=== PATIENT | female | born 1980 | race Caucasian/White ===

== ENCOUNTER 2016-05-10 09:34 | Emergency (ER) | payer BC ==
[2016-05-10 10:12] VITALS: BP 135/74
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
== END 2016-05-10 10:28 | disposition home or self-care (01) ==
LOC: UCEAST 09:34
DX: M54.5 Low back pain (principal); M79.605 Pain in left leg; Z88.0 Allergy status to penicillin
CPT/HCPCS: 99212; G0463

== ENCOUNTER 2017-03-05 11:39 | Emergency (ER) | payer BC ==
[2017-03-05 11:52] VITALS: BP 111/70
--- NOTE | 2017-03-05 12:56 | UC ---
Respiratory Complaint HPI - HPI Summary HPI Summary: 36 yo female with from [place] /pressure and pain x 1 week some post nasal drip now with sore throat no f/c low energy - History of Current Complaint Chief Complaint: UCGeneralIllness Stated Complaint: SORE THROAT Time Seen by Provider: 03/05/17 12:06 Hx Obtained From: Patient Hx Last Menstrual Period: 02/12/17 Onset/Duration: Gradual Onset Timing: Constant Severity Initially: Moderate Severity Currently: Moderate Pain Intensity: 4 Pain Scale Used: 0-10 Numeric Character: Cough: Nonproductive Associated Signs And Symptoms: Positive: Sinus Discomfort - Allergies/Home Medications Allergies/Adverse Reactions: Allergies Allergy/AdvReac Type Severity Reaction Status Date / Time Shellfish Allergy Allergy Severe Hives Verified 03/05/17 11:52 Penicillins AdvReac Intermediate See Comment Verified 03/05/17 11:52 bee stings Allergy Severe Anaphylatic Uncoded 03/05/17 11:52 Shock chalk Allergy Itching Uncoded 03/05/17 11:52 Home Medications: Home Medications Ascorbic Acid TAB* [Vitamin C TAB*] 500 mg PO DAILY 03/05/17 [History Confirmed 03/05/17] PMH/Surg Hx/FS Hx/Imm Hx Previously Healthy: Yes Other History Of: Negative For: HIV, Hepatitis B, Hepatitis C, Anticoagulant Therapy - Surgical History Surgical History: Yes Surgery Procedure, Year, and Place: appy 1990,3 c-sections. TUBAL LIGATION W/ LAST C SECTION - Family History Known Family History: Positive: Hypertension - Social History Alcohol Use: Occasionally Substance Use Type: None Smoking Status (MU): Never Smoked Tobacco Household Exposure Type: Cigarettes - Immunization History Most Recent Influenza Vaccination: 01/2017 Review of Systems Constitutional: Fatigue Skin: Negative Eyes: Negative ENT: Sore Throat, Sinus Congestion, Sinus Pain/Tenderness Respiratory: Negative Cardiovascular: Negative Gastrointestinal: Negative Genitourinary: Negative Motor: Negative Neurovascular: Negative Musculoskeletal: Negative Neurological: Headache Psychological: Negative Is Patient Immunocompromised?: No All Other Systems Reviewed And Are Negative: Yes Physical Exam Triage Information Reviewed: Yes Appearance: Well-Appearing, No Pain Distress, Well-Nourished Vital Signs: Initial Vital Signs Temp 98.1 F 03/05/17 11:48 Pulse 73 03/05/17 11:48 Resp 16 03/05/17 11:48 BP 111/70 03/05/17 11:48 Pulse Ox 100 03/05/17 11:48 Vital Signs Reviewed: Yes Eyes: Positive: Conjunctiva Clear ENT: Positive: Hearing grossly normal, Pharyngeal erythema, Nasal congestion, TMs normal, Sinus tenderness, Uvula midline Neck: Positive: Supple, Nontender, No Lymphadenopathy Respiratory: Positive: Lungs clear, Normal breath sounds, No respiratory distress, No accessory muscle use Cardiovascular: Positive: RRR, No Murmur Musculoskeletal: Positive: ROM Intact, No Edema Neurological: Positive: Alert Psychological Exam: Normal Skin Exam: Normal Diagnostic Evaluation - Laboratory O2 Sat by Pulse Oximetry: 100 Diagnostic Studies Comment: strep (-) Respiratory Course/Dx - Differential Dx/Diagnosis Provider Diagnoses: sinusitis. pharyngitis Discharge - Discharge Plan Condition: Stable Disposition: HOME Prescriptions: Amoxicillin PO (*) [Amoxicillin 875 MG (*)] 875 mg PO BID #20 tab Patient Education Materials: Sinusitis (ED) Referrals: [facility] [Outside] - If Needed Additional Instructions: warm facial compresses strep (-) saline nasal spray twice daily
== END 2017-03-05 12:57 | disposition home or self-care (01) ==
LOC: UCEAST 11:39
DX: J32.9 Chronic sinusitis, unspecified (principal); J02.9 Acute pharyngitis, unspecified
CPT/HCPCS: 87651; 99211; G0463

== ENCOUNTER 2017-05-29 17:52 | Emergency (ER) | payer BC ==
--- NOTE | 2017-05-29 18:12 | UC ---
Throat Pain/Nasal Earl HPI - HPI Summary HPI Summary: has had sinusitis symptoms for 2.5 week, now has worsening cough and sore throat is concerned because her nephew that lives with them has strep throat - History of Current Complaint Chief Complaint: UCRespiratory Stated Complaint: SORE THROAT, AND COUGH Time Seen by Provider: 05/29/17 18:10 Hx Obtained From: Patient Hx Last Menstrual Period: 02/12/17 ?: No Onset/Duration: Sudden Onset, Lasting Days Severity: Moderate Cough: Nonproductive Associated Signs & Symptoms: Positive: Hoarseness, Sinus Discomfort, Nasal Discharge - Allergies/Home Medications Allergies/Adverse Reactions: Allergies Allergy/AdvReac Type Severity Reaction Status Date / Time MS Shellfish Allergy Allergy Severe Hives Verified 05/29/17 18:18 MS Penicillins [Penicillins] AdvReac Intermediate See Comment Verified 05/29/17 18:18 bee stings Allergy Severe Anaphylatic Uncoded 05/29/17 18:18 Shock chalk Allergy Itching Uncoded 05/29/17 18:18 PMH/Surg Hx/FS Hx/Imm Hx Previously Healthy: Yes Other History Of: Negative For: HIV, Hepatitis B, Hepatitis C, Anticoagulant Therapy - Surgical History Surgical History: Yes Surgery Procedure, Year, and Place: appy 1990,3 c-sections. TUBAL LIGATION W/ LAST C SECTION - Family History Known Family History: Positive: Hypertension - Social History Occupation: Employed Full-time Lives: With Family Alcohol Use: Occasionally Substance Use Type: None Smoking Status (MU): Never Smoked Tobacco Household Exposure Type: Cigarettes - Immunization History Most Recent Influenza Vaccination: 01/2017 Review of Systems Constitutional: Chills, Fatigue Skin: Negative Eyes: Negative ENT: Sore Throat Respiratory: Cough Cardiovascular: Negative Gastrointestinal: Negative Genitourinary: Negative Motor: Negative Neurovascular: Negative Musculoskeletal: Negative Neurological: Negative Psychological: Negative Is Patient Immunocompromised?: No All Other Systems Reviewed And Are Negative: Yes Physical Exam Triage Information Reviewed: Yes Appearance: Well-Appearing, No Pain Distress, Well-Nourished Vital Signs Reviewed: Yes Eye Exam: Normal Eyes: Positive: Conjunctiva Clear ENT Exam: Normal ENT: Positive: Normal ENT inspection, Hearing grossly normal, Pharynx normal, Uvula midline. Negative: Nasal congestion, Tonsillar swelling, Tonsillar exudate, Trismus, Muffled voice, Hoarse voice, Sinus tenderness Dental Exam: Normal Neck exam: Normal Neck: Positive: Supple, Nontender Respiratory Exam: Normal Respiratory: Positive: Chest non-tender, Lungs clear, Normal breath sounds, No respiratory distress, No accessory muscle use Cardiovascular Exam: Normal Cardiovascular: Positive: RRR, No Murmur, Pulses Normal, Brisk Capillary Refill Musculoskeletal Exam: Normal Musculoskeletal: Positive: Strength Intact, ROM Intact, No Edema Neurological Exam: Normal Neurological: Positive: Alert, Muscle Tone Normal Psychological Exam: Normal Skin Exam: Normal Diagnostics - Laboratory Diagnostic Studies Completed/Ordered: RST (-) Throat Pain/Nasal Course/Dx - Course Assessment/Plan: will rx amoxicillin should sx worsen ---increase fluids, tylenol, ibuprofen follow with pcp - Differential Dx/Diagnosis Provider Diagnoses: Viral Pharyngitis Discharge - Discharge Plan Condition: Stable Disposition: HOME Prescriptions: Amoxicillin PO (*) [Amoxicillin 500 MG CAP*] 500 mg PO Q12H #20 cap Fluconazole [Diflucan 150 MG (NF)] 150 mg PO ONCE #2 tab Patient Education Materials: Pharyngitis (ED) Referrals: Romina Weinstein [employer]UTIONS ARCHITECT [Primary Care Provider] - If Needed
[2017-05-29 18:26] VITALS: BP 105/63
== END 2017-05-29 20:00 | disposition home or self-care (01) ==
LOC: UCEAST 17:52
DX: J02.8 Acute pharyngitis due to other specified organisms (principal); R05 Cough; Z91.030 Bee allergy status; Z88.0 Allergy status to penicillin; Z91.013 Allergy to seafood
CPT/HCPCS: 87651; 99212; G0463

== ENCOUNTER 2017-08-18 09:49 | Emergency (ER) | payer BC ==
--- NOTE | 2017-08-18 10:15 | UC ---
Throat Pain/Nasal Earl HPI - HPI Summary HPI Summary: Pt presents with sore throat for the last 3 days. She tells me that 2 days ago she had a fever of 100F, fatigue, and body aches - she rested and took ibuprofen with relief of her symptoms. Her sore throat has persisted. 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 Currently denies fever, chills, cough, SOB, chest pain, abdominal pain, n/v/d/c. - History of Current Complaint Stated Complaint: SORE THROAT Time Seen by Provider: 08/18/17 10:15 Hx Obtained From: Patient Hx Last Menstrual Period: 02/12/17 Onset/Duration: Gradual Onset Severity: Mild Pain Intensity: 3 Pain Scale Used: 0-10 Numeric - Allergies/Home Medications Allergies/Adverse Reactions: Allergies Allergy/AdvReac Type Severity Reaction Status Date / Time Penicillins Allergy Intermediate yeast Verified 08/18/17 10:31 infections bee stings Allergy Severe Anaphylatic Uncoded 08/18/17 10:31 Shock shelllfish Allergy Severe Hives Uncoded 08/18/17 10:31 chalk Allergy Itching Uncoded 08/18/17 10:31 PMH/Surg Hx/FS Hx/Imm Hx - Additional Past Medical History Additional PMH: None Previously Healthy: Yes Other History Of: Negative For: HIV, Hepatitis B, Hepatitis C, Anticoagulant Therapy - Surgical History Surgical History: Yes Surgery Procedure, Year, and Place: appy 1990,3 c-sections. TUBAL LIGATION W/ LAST C SECTION - Family History Known Family History: Positive: Hypertension - Social History Occupation: Employed Full-time Lives: With Family Alcohol Use: Occasionally Substance Use Type: None Smoking Status (MU): Never Smoked Tobacco Household Exposure Type: Cigarettes - Immunization History Most Recent Influenza Vaccination: 01/2017 Review of Systems Constitutional: Negative Skin: Negative Eyes: Negative ENT: Sore Throat Respiratory: Negative Cardiovascular: Negative Gastrointestinal: Negative Neurovascular: Negative Neurological: Negative Psychological: Negative All Other Systems Reviewed And Are Negative: Yes Physical Exam - Summary Physical Exam Summary: GENERAL: NAD. WDWN. No pain distress. SKIN: No rashes, sores, lesions, or open wounds. HEENT: Head: AT/NC Eyes: Conjunctiva clear without inflammation or discharge. Ears: Hearing grossly normal. TMs intact, no bulging, erythema, or edema. Nose: Nasal mucosa pink and moist. NTTP maxillary and frontal sinus. Throat: Posterior oropharynx mild erythema. No tonsillar enlargement. No exudates. Uvula midline. No hoarse voice or muffled voice. NECK: Supple. Nontender. No lymphadenopathy. CHEST: CTAB. No r/r/w. No accessory muscle use. Breathing comfortably and in no distress. CV: RRR. Without m/r/g. Pulses intact. Brisk cap refill. NEURO: Alert. CN II-XII grossly intact. PSYCH: Age appropriate behavior. Triage Information Reviewed: Yes Throat Pain/Nasal Course/Dx - Course Course Of Treatment: POC strep negative. Suspecct viral illness. Advised to continue with supportive care. Pt did not want flu swab today. - Differential Dx/Diagnosis Provider Diagnoses: Viral illness Discharge - Sign-Out/Discharge Documenting (check all that apply): Discharge/Admit/Transfer - Discharge Plan Condition: Stable Disposition: HOME Patient Education Materials: Viral Syndrome (ED) Referrals: Romina Weinstein NP [Primary Care Provider] - Additional Instructions: If you develop a fever, shortness of breath, chest pain, new or worsening symptoms - please call your PCP or go to the ED. - Billing Disposition and Condition Condition: STABLE Disposition: HOME
[2017-08-18 10:29] VITALS: BP 113/73
== END 2017-08-18 10:50 | disposition home or self-care (01) ==
LOC: UCEAST 09:49
DX: B34.9 Viral infection, unspecified (principal); Z88.0 Allergy status to penicillin
CPT/HCPCS: 87651; 99211; G0463

== ENCOUNTER 2017-11-24 13:19 | Emergency (ER) | payer BC ==
[2017-11-24 13:41] VITALS: BP 116/65
--- NOTE | 2017-11-24 13:58 | UC ---
Complaint Female HPI - HPI Summary HPI Summary: 37-year-old female presents with onset of dysuria, frequency, and urgency this morning. Associated with some mild suprapubic discomfort and cloudy urine. States symptoms have progressively worsened throughout the day. She denies fevers or chills, back or flank pain, nausea or vomiting, hematuria, or vaginal discharge. Last menstrual period was a week and a half to 2 weeks ago. Surgical history significant for tubal ligation. - History Of Current Complaint Chief Complaint: UCGU Stated Complaint: URINARY COMPLAINT Time Seen by Provider: 11/24/17 13:39 Hx Obtained From: Patient Hx Last Menstrual Period: 12/11/17 ?: No - history of tubal ligation Onset/Duration: Gradual Onset Severity Initially: Mild Severity Currently: Mild Pain Intensity: 6 Character: Burning Aggravating Factor(s): Urination Alleviating Factor(s): Nothing Associated Signs And Symptoms: Positive: Negative - Allergies/Home Medications Allergies/Adverse Reactions: Allergies Allergy/AdvReac Type Severity Reaction Status Date / Time Penicillins Allergy Intermediate yeast Verified 11/24/17 13:41 infections bee stings Allergy Severe Anaphylatic Uncoded 11/24/17 13:41 Shock shelllfish Allergy Severe Hives Uncoded 11/24/17 13:41 chalk Allergy Itching Uncoded 11/24/17 13:41 PMH/Surg Hx/FS Hx/Imm Hx - Additional Past Medical History Additional PMH: Noncontributory Previously Healthy: Yes Other History Of: Negative For: HIV, Hepatitis B, Hepatitis C, Anticoagulant Therapy - Surgical History Surgical History: Yes Surgery Procedure, Year, and Place: appy 1990,3 c-sections. TUBAL LIGATION W/ LAST C SECTION - Family History Known Family History: Positive: Hypertension - Social History Occupation: Employed Full-time Lives: With Family Alcohol Use: Occasionally Substance Use Type: None Smoking Status (MU): Never Smoked Tobacco Household Exposure Type: Cigarettes - Immunization History Most Recent Influenza Vaccination: 01/2017 Review of Systems Constitutional: Negative Gastrointestinal: Abdominal Pain - Suprapubic Genitourinary: Dysuria, Frequency, Urgency, Other - See history of present illness Is Patient Immunocompromised?: No All Other Systems Reviewed And Are Negative: Yes Physical Exam Triage Information Reviewed: Yes Appearance: Well-Appearing, No Pain Distress, Well-Nourished Vital Signs: Initial Vital Signs Temp 97 F 11/24/17 13:38 Pulse 81 11/24/17 13:38 Resp 16 11/24/17 13:38 BP 116/65 11/24/17 13:38 Pulse Ox 99 11/24/17 13:38 Vital Signs Reviewed: Yes Respiratory: Positive: No respiratory distress Abdomen Description: Positive: No Organomegaly, Soft, Other: - Mild suprapubic tenderness. Negative: CVA Tenderness (R), CVA Tenderness (L) Bowel Sounds: Positive: Present Neurological: Positive: Alert Skin Exam: Normal Diagnostics - Laboratory Diagnostic Studies Completed/Ordered: Point of care urinalysis was positive for leukocyte esterase, blood, and protein. Complaint Female Dx - Course Course Of Treatment: 37-year-old female presents with onset of UTI symptoms this morning. [id number] urinalysis was positive for leukocyte esterase, blood, and protein. Will send a urine culture. Nitrofurantoin 100 mg twice a day for 5 days. Pyridium 1 tab 3 times a day for 2 days. Follow-up with primary care provider if no improvement in symptoms after treatment. - Differential Dx/Diagnosis Provider Diagnoses: Acute urinary cystitis Discharge - Sign-Out/Discharge Documenting (check all that apply): Patient Departure - Discharge Plan Condition: Stable Disposition: HOME Prescriptions: Nitrofurantoin Macrocrystal [Nitrofurantoin] 100 mg PO BID #10 capsule Phenazopyridine TAB* [Pyridium 100 mg TAB*] 100 mg PO TID #6 tab Patient Education Materials: Urinary Tract Infection in Women (DC) Referrals: Romina Weinstein [employer] STITCHER [Primary Care Provider] - If Needed Additional Instructions: The urine test performed in the clinic today is consistent with a urinary tract infection. We will send a urine culture to see what bacteria grows out and ensure that it is sensitive to the antibiotic given to you. Take the antibiotic as directed. Take Pyridium 1 tab 3 times a day for the next 2 days to help with the discomfort. Be aware that this will turn her urine orange color. Drink plenty of fluids. To help prevent urinary tract infections in the future be sure to wipe from front to back and urinate after intercourse. Follow-up with your primary care provider if no improvement in symptoms after completing your treatment. - Billing Disposition and Condition Condition: STABLE Disposition: Home
== END 2017-11-24 14:17 | disposition home or self-care (01) ==
LOC: UCEAST 13:19
DX: N30.01 Acute cystitis with hematuria (principal); Z91.030 Bee allergy status; Z88.0 Allergy status to penicillin; Z91.013 Allergy to seafood; Z82.49 Family history of ischemic heart disease and other diseases of the circulatory system
CPT/HCPCS: 81003; 87077; 87086; 99212; G0463

== ENCOUNTER 2017-12-04 16:16 | Emergency (ER) | payer BC ==
[2017-12-04 16:57] VITALS: BP 119/76
--- NOTE | 2017-12-04 17:22 | UC ---
Complaint Female HPI - HPI Summary HPI Summary: treated for UTI 3 weeks ago (macrobid) started to feel better but over past day symptoms have returned - History Of Current Complaint Chief Complaint: UCGU Stated Complaint: POSS UTI Time Seen by Provider: 12/04/17 17:00 Hx Obtained From: Patient Hx Last Menstrual Period: [id number] ?: No Onset/Duration: Gradual Onset Timing: Constant Severity Initially: Mild Severity Currently: Moderate Pain Intensity: 6 Character: Burning Aggravating Factor(s): Urination Alleviating Factor(s): Nothing Associated Signs And Symptoms: Positive: Negative. Negative: Fever, Back Pain, Vaginal Bleeding/Discharge, Vaginal Discharge Related Hx: Similar Episode/Dx as: - UTI - Allergies/Home Medications Allergies/Adverse Reactions: Allergies Allergy/AdvReac Type Severity Reaction Status Date / Time Penicillins Allergy Intermediate yeast Verified 12/04/17 16:57 infections bee stings Allergy Severe Anaphylatic Uncoded 12/04/17 16:57 Shock shelllfish Allergy Severe Hives Uncoded 12/04/17 16:57 chalk Allergy Itching Uncoded 12/04/17 16:57 PMH/Surg Hx/FS Hx/Imm Hx Previously Healthy: Yes Other History Of: Negative For: HIV, Hepatitis B, Hepatitis C, Anticoagulant Therapy - Surgical History Surgical History: Yes Surgery Procedure, Year, and Place: appy 1990,3 c-sections. TUBAL LIGATION W/ LAST C SECTION - Family History Known Family History: Positive: Hypertension - Social History Occupation: Employed Full-time - teacher Lives: With Family Alcohol Use: Occasionally Substance Use Type: None Smoking Status (MU): Never Smoked Tobacco Household Exposure Type: Cigarettes - Immunization History Most Recent Influenza Vaccination: 01/2017 Review of Systems Constitutional: Negative Respiratory: Negative Cardiovascular: Negative Genitourinary: Dysuria, Frequency, Urgency Psychological: Negative Is Patient Immunocompromised?: No All Other Systems Reviewed And Are Negative: Yes Physical Exam Triage Information Reviewed: Yes Appearance: Well-Appearing, No Pain Distress, Well-Nourished Vital Signs: Initial Vital Signs Temp 98.6 F 12/04/17 16:52 Pulse 69 12/04/17 16:52 Resp 16 12/04/17 16:52 BP 119/76 12/04/17 16:52 Pulse Ox 99 12/04/17 16:52 Vital Signs Reviewed: Yes Respiratory Exam: Normal Cardiovascular Exam: Normal Abdominal Exam: Normal Abdomen Description: Positive: Nontender, No Organomegaly, Soft. Negative: CVA Tenderness (R), CVA Tenderness (L) Neurological Exam: Normal Psychological Exam: Normal Skin Exam: Normal Complaint Female Dx - Differential Dx/Diagnosis Differential Diagnosis/HQI/PQRI: Ureteral Stone, Urinary Tract Infection Provider Diagnoses: UTI Discharge - Sign-Out/Discharge Documenting (check all that apply): Patient Departure - Discharge Plan Condition: Stable Disposition: HOME Prescriptions: Ciprofloxacin TAB* [Cipro 500 MG TAB*] 500 mg PO BID #14 tab Patient Education Materials: Urinary Tract Infection in Women (ED) Referrals: Romina Weinstein [employer]AREER LAW CLERK [Primary Care Provider] - 3 Days (if no better) Additional Instructions: Drink plenty of fluids start antibiotic and take as prescribed - Billing Disposition and Condition Condition: STABLE Disposition: Home
--- NOTE | 2017-12-06 19:04 | PN ---
Progress Note - Progress Note Date of Service: 12/06/17 Note: Patient's urine grew Staphylococcus greater than 100,000. Patient placed on Cipro. No further action required.
== END 2017-12-04 17:32 | disposition home or self-care (01) ==
LOC: UCEAST 16:16
DX: N39.0 Urinary tract infection, site not specified (principal); Z91.030 Bee allergy status; Z88.0 Allergy status to penicillin; Z91.013 Allergy to seafood
CPT/HCPCS: 81003; 87077; 87086; 99212; G0463

== ENCOUNTER 2017-12-10 19:43 | Emergency (ER) | payer BC ==
[2017-12-10 20:57] VITALS: BP 122/84
--- NOTE | 2017-12-10 21:51 | UC ---
Knee Pain HPI - HPI Summary HPI Summary: injured left knee yesterday while playing volleyball - History of Current Complaint Chief Complaint: UCLowerExtremity Stated Complaint: L KNEE INJURY Time Seen by Provider: 12/10/17 21:44 Hx Obtained From: Patient Hx Last Menstrual Period: 1 MONTH AGO ?: No Onset/Duration: Sudden Onset, Lasting Days - 1 Pain Intensity: 5 Pain Scale Used: 0-10 Numeric Character: Aching, Throbbing, Stiffness Aggravating Factor(s): Movement, Weight Bearing Alleviating Factor(s): Rest, Position, Cold, OTC Meds Associated Signs And Symptoms: Positive: Swelling Able to Bear Weight: Yes - Allergies/Home Medications Allergies/Adverse Reactions: Allergies Allergy/AdvReac Type Severity Reaction Status Date / Time Penicillins Allergy Intermediate yeast Verified 12/10/17 20:57 infections bee stings Allergy Severe Anaphylatic Uncoded 12/04/17 16:57 Shock shelllfish Allergy Severe Hives Uncoded 12/04/17 16:57 chalk Allergy Itching Uncoded 12/04/17 16:57 PMH/Surg Hx/FS Hx/Imm Hx Previously Healthy: Yes Other History Of: Negative For: HIV, Hepatitis B, Hepatitis C, Anticoagulant Therapy - Surgical History Surgical History: Yes Surgery Procedure, Year, and Place: appy 1990,3 c-sections. TUBAL LIGATION W/ LAST C SECTION - Family History Known Family History: Positive: Hypertension - Social History Occupation: Employed Full-time Lives: With Family Alcohol Use: Occasionally Substance Use Type: None Smoking Status (MU): Never Smoked Tobacco Household Exposure Type: Cigarettes - Immunization History Most Recent Influenza Vaccination: 01/2017 Most Recent Tetanus Shot: UCLO Review of Systems Constitutional: Negative Skin: Negative Eyes: Negative ENT: Negative Respiratory: Negative Cardiovascular: Negative Gastrointestinal: Negative Genitourinary: Negative Motor: Negative Neurovascular: Negative Musculoskeletal: Arthralgia - left knee pain, Edema - left knee Neurological: Negative Psychological: Negative Is Patient Immunocompromised?: No All Other Systems Reviewed And Are Negative: Yes Physical Exam Triage Information Reviewed: Yes Appearance: Well-Appearing, No Pain Distress, Well-Nourished Vital Signs: Initial Vital Signs Temp 97.9 F 12/10/17 20:54 Pulse 73 12/10/17 20:54 Resp 16 12/10/17 20:54 BP 122/84 12/10/17 20:54 Pulse Ox 100 12/10/17 20:54 Vital Signs Reviewed: Yes Eye Exam: Normal Eyes: Positive: Conjunctiva Clear ENT Exam: Normal ENT: Positive: Normal ENT inspection, Hearing grossly normal. Negative: Trismus , Muffled voice, Hoarse voice Dental Exam: Normal Neck exam: Normal Neck: Positive: Supple, Nontender, No Lymphadenopathy Respiratory Exam: Normal Respiratory: Positive: Chest non-tender, No respiratory distress, No accessory muscle use Cardiovascular Exam: Normal Cardiovascular: Positive: RRR, Pulses Normal, Brisk Capillary Refill Abdominal Exam: Normal Musculoskeletal Exam: Other Musculoskeletal: Positive: Strength Limited @ - left knee, ROM Limited @ - left knee, Edema @ - left knee Neurological Exam: Normal Psychological Exam: Normal Skin Exam: Normal Knee Pain Course/Dx - Course Course Of Treatment: Stop Cipro! knee immoblizer, crutches, follow with ortho in 3 days, RICE---will reculture urine - Differential Dx/Diagnosis Provider Diagnoses: left knee injury Discharge - Sign-Out/Discharge Documenting (check all that apply): Patient Departure All imaging exams completed and their final reports reviewed: No - Discharge Plan Condition: Stable Disposition: HOME Patient Education Materials: Crutch Instructions (ED), Knee Pain (ED), R.I.C.E. Treatment (ED) Referrals: Benjamin Bundy MD [Medical Doctor] - 3 Days Additional Instructions: Stop Cipro! - Billing Disposition and Condition Condition: STABLE Disposition: Home
--- NOTE | 2017-12-11 08:05 | UC ---
- Progress Note Progress Note: IMPRESSION: #. Equivocal small joint effusion. Otherwise unremarkable. No change in plan of care Discharge - Sign-Out/Discharge Documenting (check all that apply): Post-Discharge Follow Up All imaging exams completed and their final reports reviewed: Yes - Discharge Plan Condition: Stable Disposition: HOME Patient Education Materials: Crutch Instructions (ED), Knee Pain (ED), R.I.C.E. Treatment (ED) Referrals: Benjamin Bundy MD [Medical Doctor] - 3 Days Additional Instructions: Stop Cipro! - Billing Disposition and Condition Condition: STABLE Disposition: Home
--- NOTE | 2017-12-11 09:42 | RAD ---
Indication: Continued lateral LEFT knee pain and swelling following pop sensation at lateral aspect 3 days ago while running. Comparison: June 18, 2009 Technique: LEFT knee: AP, tunnel, lateral, sunrise views. Report: Negative for fracture or malalignment. Equivocal small joint effusion at the suprapatellar joint recess. Preserved joint spaces. Unremarkable soft tissue contours. IMPRESSION: #. Equivocal small joint effusion. Otherwise unremarkable. R0
== END 2017-12-10 22:37 | disposition home or self-care (01) ==
LOC: UCEAST 19:43
DX: S89.82XA Other specified injuries of left lower leg, initial encounter (principal); X50.1XXA Overexertion from prolonged static or awkward postures, initial encounter; Y92.9 Unspecified place or not applicable
CPT/HCPCS: 81003; 87086; 99213; G0463

== ENCOUNTER 2019-06-07 11:48 | Emergency (ER) | payer BC ==
[2019-06-07 12:47] VITALS: BP 122/80
--- NOTE | 2019-06-07 13:25 | UC ---
Hand/Wrist HPI - HPI Summary HPI Summary: Pt RHD presents with swelling and discomfort right 5th finger x 2 days. Pt states injured while sledding. no defomity. no analgesia taken. states discomfort with movement - feels stiff states tip feels "tingling" no open wounds medications as entered in EMR by boiler erector reviewed this visit denies - History Of Current Complaint Chief Complaint: UCUpperExtremity Stated Complaint: R HAND INJURY Time Seen by Provider: 06/07/19 13:11 Hx Last Menstrual Period: one week ago ?: No Onset/Duration: Sudden Onset Severity Initially: Mild Pain Intensity: 6 - Allergies/Home Medications Allergies/Adverse Reactions: Allergies Allergy/AdvReac Type Severity Reaction Status Date / Time Penicillins Allergy Intermediate yeast Verified 12/15/17 10:35 infections shellfish derived Allergy Intermediate Hives Verified 06/07/19 12:47 bee stings Allergy Severe Anaphylatic Uncoded 12/15/17 10:35 Shock chalk Allergy Itching Uncoded 12/15/17 10:35 Home Medications: Home Medications Iron Combinations [Iron] 1 tab PO DAILY 04/24/13 [History Confirmed 06/07/19] Ascorbic Acid TAB* [Vitamin C TAB*] 500 mg PO DAILY 03/05/17 [History Confirmed 06/07/19] PMH/Surg Hx/FS Hx/Imm Hx Previously Healthy: Yes Other History Of: Negative For: HIV, Hepatitis B, Hepatitis C, Anticoagulant Therapy - Surgical History Surgical History: Yes Surgery Procedure, Year, and Place: appy 1990,3 c-sections. TUBAL LIGATION W/ LAST C SECTION - Family History Known Family History: Positive: Hypertension, Non-Contributory - Social History Occupation: Employed Full-time Lives: With Family Alcohol Use: Occasionally Substance Use Type: None Smoking Status (MU): Never Smoked Tobacco Household Exposure Type: Cigarettes - Immunization History Most Recent Influenza Vaccination: 01/2017 Most Recent Tetanus Shot: UCLO Review of Systems All Other Systems Reviewed And Are Negative: No Skin: Positive: Other - swelling, no wounds Musculoskeletal: Positive: Other: - right 5th Neurological/Mental Status: Positive: Paresthesia Physical Exam - Summary Physical Exam Summary: Vital Signs Reviewed: Yes A+Ox3, no distress Eyes: Conjunctiva Clear ENT: Hearing grossly normal neck: supple Respiratory: Positive: No respiratory distress, No accessory muscle use Cardiovascular: skin color reflect adequate perfusion CBT <2 sec finger Musculoskeletal Exam: no pain snuff box no pain carpals, slight discomfort distal MC 5th at MCP + full flex.ext mcp, pip, dip with resistance neg laxity lateral joint movement Neurological: Positive: Alert, ambulatory without difficulty reports decreased sensation medial aspect distal finger Psychological: Positive: Normal Response To proivder Skin: Positive: no rash, no ecchymosis, mild circumferential edema right 5th - no open wounds Vital Signs: Initial Vital Signs Temp 99 F 06/07/19 12:43 Pulse 62 06/07/19 12:43 Resp 18 06/07/19 12:43 BP 122/80 06/07/19 12:43 Pulse Ox 100 06/07/19 12:43 Hand/Wrist Course/Dx - Course Course Of Treatment: Pt with right 5th finger discomfort s/p sledding injury - no deformity vss discomfrot at MCP no laxity imaging neg splint ice rest PCP f.u referral ortho prn analgesia - Differential Dx/Diagnosis Provider Diagnosis: Sprain, finger Discharge ED - Sign-Out/Discharge Documenting (check all that apply): Patient Departure All imaging exams completed and their final reports reviewed: Yes - Discharge Plan Condition: Stable Disposition: HOME Patient Education Materials: Finger Sprain (ED) Referrals: Ricky Malone MD [Primary Care Provider] - Galilea Chi MD [Medical Doctor] - Additional Instructions: - wear splint for comfort and support - Okay to alternate ibuprofen (Advil, Motrin) and Tylenol (acetaminophen) every 3 hours for pain or fever. Take with food. Do NOT take for more than 4-5 days. - elevate your hand to help with swelling and pain - After resting your finger for 4-5 days- okay to gentle bend and straighten - contact your doctor or the treasury specialist if you have ongoing pain or any other concerns - Billing Disposition and Condition Condition: STABLE Disposition: Home
== END 2019-06-07 13:40 | disposition home or self-care (01) ==
LOC: UCEAST 11:48
DX: S63.656A Sprain of metacarpophalangeal joint of right little finger, initial encounter (principal); X58.XXXA Exposure to other specified factors, initial encounter; Y93.23 Activity, snow (alpine) (downhill) skiing, snowboarding, sledding, tobogganing and snow tubing; Y92.9 Unspecified place or not applicable; Z91.030 Bee allergy status; Z88.0 Allergy status to penicillin; Z91.013 Allergy to seafood; Z91.048 Other nonmedicinal substance allergy status
CPT/HCPCS: 99211; G0463